=== PATIENT | male | born 1955 | race Two or more races ===

== ENCOUNTER 2017-02-08 12:03 | Day surgery (SDC) | payer MEDICAID ==
[~2017-02-08] VITALS: Ht 175.3 cm; Wt 88.0 kg
[~2017-02-08 12:03] MED LIST: METF-370 PO; PANT1INJ3 PO; SIMV-13 PO; TAMS0.4C36 PO; ZOLP10TA6 PO
[2017-02-08] MEDS ORDERED: IODIXANOL 320MG/ML 100ML BTL IV ONE (12:25)
[2017-02-08] MEDS ORDERED: LIDOCAINE 2%HCL (LOCAL ANESTH.) INJ 20ML MDV ONE (12:25)
[2017-02-08] MEDS ORDERED: fentaNYL CITRATE 100 MCG/2 ML VL ONE (13:03)
[2017-02-08] MEDS ORDERED: SODIUM CHL 0.9% 0 ML ONE (13:03)
[2017-02-08] MEDS ORDERED: ANGIOMAX 250 MG VIAL IV ONE (13:03)
[2017-02-08] MEDS ORDERED: MIDAZOLAM HCL 1MG/1ML-2 ML VIAL ONE (13:03)
[2017-02-08] MEDS ORDERED: VERAPAMIL 2.5MG/ML INJ 2ML VIAL IV ONE (13:12)
== END 2017-02-08 16:22 | disposition home or self-care (01) ==
LOC: CATH 12:03
PROVIDERS: ATTEND Internal Medicine
DX: I20.0 Unstable angina (principal); I99.8 Other disorder of circulatory system
CPT/HCPCS: 93458; C1760; C1769; C1894; J1644; J3010; J7030; 93005; 99152; 99153; J2250; Q9967

== ENCOUNTER 2017-04-22 09:40 | Day surgery (SDC) | payer MEDICAID ==
[~2017-04-22] VITALS: Ht 175.3 cm; Wt 88.0 kg
[2017-04-22] MEDS ORDERED: LIDOCAINE 2%HCL (LOCAL ANESTH.) INJ 20ML MDV ONE (10:13)
[2017-04-22] MEDS ORDERED: IODIXANOL 320MG/ML 100ML BTL IV ONE (10:13)
[2017-04-22] MEDS ORDERED: fentaNYL CITRATE 100 MCG/2 ML VL ONE (10:29)
[2017-04-22] MEDS ORDERED: MIDAZOLAM HCL 1MG/1ML-2 ML VIAL ONE (10:29)
[2017-04-22] MEDS ORDERED: SODIUM CHL 0.9% 0 ML ONE (10:37)
[2017-04-22] MEDS ORDERED: ANGIOMAX 250 MG VIAL IV ONE (10:37)
[2017-04-22] MEDS ORDERED: BENA5TAB5 PO (11:26)
== END 2017-04-22 13:25 | disposition home or self-care (01) ==
LOC: CATH 09:40
PROVIDERS: ATTEND Internal Medicine
DX: I70.212 Atherosclerosis of native arteries of extremities with intermittent claudication, left leg (principal)
CPT/HCPCS: 36246; 75716; C1760; C1769; C1887; C1894; J1644; J3010; J7030; 99152; J2250; Q9967

== ENCOUNTER 2017-11-13 14:21 | Emergency (ER) | payer MEDICAID ==
[~2017-11-13] VITALS: Ht 175.3 cm; Wt 90.7 kg
[~2017-11-13 14:21] MED LIST changes: +BENA5TAB5 PO
[2017-11-13 16:07] LABS: Basophils # (auto) 0.1 uL; Basophils % (auto) 0.6 % (0.0-2.0); Eosinophils # (auto) 0.1 uL; Eosinophils % (auto) 1.2 % (0.0-7.0); Hematocrit 42.7 % (41.0-53.0); Hemoglobin 14.5 g/dL (13.5-17.5); Lymphocytes # (auto) 2.3 uL; Lymphocytes % (auto) 19.1 % (10.0-50.0); Mean Corpuscular Hemoglobin 29.9 pg (28.0-32.0); Mean Corpuscular Volume 87.9 fL (80.0-100.0); Monocytes # (auto) 1.3 uL; Monocytes % (auto) 10.7 % (0.0-12.0); Neutrophils # (auto) 8.2 uL; Neutrophils % (auto) 68.4 % (37.0-80.0); Nucleated Red Blood Cells % 0.3 %; Platelet Count (auto) 429 10^3/uL (140-450); Red Blood Cells 4.86 10^6/uL (4.5-5.90); Red Cell Distribution Width 15.2 % (11.8-14.3)
[2017-11-13 16:19] LABS: Albumin 3.7 g/dL (3.4-5.0); Anion Gap 11 (5-15); Blood Urea Nitrogen 16 mg/dL (7-18); Calcium 8.5 mg/dL (8.5-10.1); Carbon Dioxide 24 mmol/L (21-32); Chloride 110 mmol/L (98-107); Glucose 92 mg/dL (74-106); Magnesium 2.2 mg/dL (1.6-2.6); Potassium 4.1 mmol/L (3.5-5.1); Sodium 145 mmol/L (136-145)
[2017-11-13 16:21] LABS: Alanine Aminotransferase 31 U/L (16-61); Aspartate Aminotransferase 23 U/L (15-37); GFR African American 84 mL/min; GFR Non-African American 69 mL/min
[2017-11-13 16:37] LABS: Alkaline Phosphatase 125 U/L (45-117); Bilirubin, Total 0.2 mg/dL (0.2-1.0); Total Protein 7.7 g/dL (6.4-8.2)
[2017-11-14 01:10] VITALS: BP 123/67
[2017-11-14] MEDS ORDERED: ALBUTEROL SULF 2.5 MG/0.5ML(0.5%) NEB SOLN NEB ONE (01:15)
[2017-11-14] MEDS ORDERED: IPRATROPIUM BROM 0.5 MG/2.5ML INH SOL NEB ONE (01:15)
== END 2017-11-14 02:24 | disposition home or self-care (01) ==
LOC: ER 14:21
DX: J20.9 Acute bronchitis, unspecified (principal); E11.9 Type 2 diabetes mellitus without complications; E78.5 Hyperlipidemia, unspecified; F17.210 Nicotine dependence, cigarettes, uncomplicated; Z79.4 Long term (current) use of insulin; Z90.49 Acquired absence of other specified parts of digestive tract
CPT/HCPCS: 36415; 71045; 80053; 83735; 84484; 85025; 93005; 94640

== ENCOUNTER 2024-02-24 17:46 | Emergency (ER) | payer MEDICAID ==
[~2024-02-24] VITALS: Ht 175.3 cm; Wt 93.1 kg
[~2024-02-24 17:46] MED LIST changes: -BENA5TAB5 PO; +BENA5TAB9 PO; -SIMV-13 PO; +SIMV40TA18 PO; -TAMS0.4C36 PO; +TAMS0.4C39 PO
[2024-02-24 19:06] LABS: Urine Bacteria FEW /hpf (None Seen); Urine Blood TRACE /uL (Negative); Urine Clarity Turbid (Clear); Urine Color Yellow (Yellow); Urine Hyaline Cast MOD /lpf (0 - 2); Urine Mucus MODERATE (None Seen); Urine Protein, UAD TRACE (Negative); Urine Specific Gravity 1.026 (1.001-1.035); Urine Urobilinogen Normal (Negative); Urine WBC 7 /hpf (0 - 3); Urine pH 5.5 (5.0-9.0)
[2024-02-24 20:24] LABS: Basophils # (auto) 0 10 ^3/uL (0-0.2); Basophils % (auto) 0.2 % (0.0-2.0); Eosinophils # (auto) 0 10 ^3/uL (0-0.8); Hematocrit 46.3 % (41.0-53.0); Hemoglobin 15.6 g/dL (13.5-17.5); Lymphocytes # (auto) 2.1 10 ^3/uL (0.4-5.4); Lymphocytes % (auto) 13.2 % (10.0-50.0); Mean Corpuscular Hemoglobin 29.8 pg (28.0-32.0); Mean Corpuscular Hgb Conc. 33.6 g/dL (32.0-36.0); Mean Corpuscular Volume 88.4 fL (80.0-100.0); Monocytes # (auto) 1.3 10 ^3/uL (0-1.3); Monocytes % (auto) 7.9 % (0.0-12.0); Neutrophils # (auto) 12.7 10 ^3/uL (1.6-8.6); Neutrophils % (auto) 78.7 % (37.0-80.0); Platelet Count (auto) 378 10^3/uL (140-450); Red Blood Cells 5.23 10^6/uL (4.5-5.90); Red Cell Distribution Width 14.8 % (11.8-14.3); White Blood Cell 16.1 10^3/uL (4.4-10.8)
[2024-02-24] MEDS: SODIUM CHLORIDE 0.9% 1,000 ML IV ONE (20:32)
[2024-02-24 20:35] LABS: Chloride 109 mmol/L (98-107); Potassium 4.8 mmol/L (3.5-5.1); Sodium 140 mmol/L (136-145)
[2024-02-24] MEDS: ONDANSETRON HCL 4 MG/2 ML VIAL IV ONE (20:35)
[2024-02-24 20:36] LABS: Anion Gap 5 (5-15); Calcium 10.5 mg/dL (8.7-10.4); Carbon Dioxide 26 mmol/L (20-31)
[2024-02-24 20:41] LABS: BUN/Creatinine Ratio 19.8 (10.0-20.0); Blood Urea Nitrogen 22 mg/dL (9-23); Glucose 115 mg/dL (74-106)
[2024-02-24 20:49] VITALS: BP 109/58; PULSE 55; RESP 20; TEMP 97.5; O2SAT 96
== END 2024-02-24 22:31 | disposition left against medical advice (07) ==
LOC: EDBD 17:46 → ER 17:50
DX: R55 Syncope and collapse (principal); R07.9 Chest pain, unspecified; R06.02 Shortness of breath; E11.9 Type 2 diabetes mellitus without complications; E78.5 Hyperlipidemia, unspecified; F17.210 Nicotine dependence, cigarettes, uncomplicated; I10 Essential (primary) hypertension; Z79.899 Other long term (current) drug therapy; Z90.49 Acquired absence of other specified parts of digestive tract
CPT/HCPCS: 36415; 70450; 71046; 80048; 81001; 84484; 85025; 93005; 96361; 96374; 99285; J2405; J7030